=== PATIENT | female | born 1935 | race Caucasian/White ===

== ENCOUNTER 2018-07-18 00:57 | Inpatient (IN) | payer OTHER ==
[~2018-07-18] VITALS: Ht 165.1 cm; Wt 63.5 kg
[2018-07-18 01:02] VITALS: BP 152/81
[2018-07-18] MEDS ORDERED: SYNTHROID88 MCG PO (01:14)
[2018-07-18] MEDS ORDERED: BUTRANS1 EAC1 TRANSDERM (01:15)
[2018-07-18] MEDS ORDERED: FISH OIL 1,001000 M2 (01:16)
[2018-07-18] MEDS ORDERED: ECOTRIN325 MG PO (01:16)
[2018-07-18] MEDS ORDERED: PROTONIX 20 MG20 M1 PO (01:17)
[2018-07-18 05:45] LABS: URINE BILIRUBIN NEGATIVE (Negative); URINE BLOOD TRACE (Negative); URINE CLARITY CLEAR; URINE COLOR YELLOW; URINE GLUCOSE-RANDOM* NEGATIVE (Negative); URINE KETONES NEGATIVE (Negative); URINE LEUKOCYTES-REFLEX TRACE (Negative); URINE NITRITE-REFLEX NEGATIVE (Negative); URINE PROTEIN (DIPSTICK) NEGATIVE (Negative); URINE SPECIFIC GRAVITY <= 1.005 (1.005-1.035); URINE UROBILINOGEN 0.2 E.U./dl (0.2-1.0)
[2018-07-18 05:48] LABS: HEMATOCRIT 33.2 % (37.0-47.0); HEMOGLOBIN 11.1 gm/dL (12.0-15.0); MCH 27.3 pg (26.0-34.0); MCHC 33.3 g/dL (28.0-37.0); MCV 82.1 fL (80.0-100.0); PLATELET COUNT 225 thou/uL (150-400); RBC 4.04 mil/uL (4.20-5.00); RDW 16.9 % (10.5-14.5); WBC 6.7 thou/uL (4.0-11.0)
[2018-07-18 05:52] LABS: CALCIUM 9.2 mg/dL (8.5-10.1); CREATININE 0.7 mg/dL (0.6-1.0); POTASSIUM 4.1 mmol/L (3.5-5.1)
[2018-07-18 05:55] LABS: PROTIME 10.7 Seconds (9.3-11.4)
[2018-07-18 06:25] LABS: ABSOLUTE NEUTROPHILS 2.6 thou/uL (1.4-8.2)
[2018-07-18 06:26] LABS: ANISOCYTOSIS 1+; BURR CELLS 1+; PLATELET ESTIMATE NORMAL; SCHISTOCYTES 1+
[2018-07-18 07:01] VITALS: BP 144/69
[2018-07-18 08:30] VITALS: BP 133/54
[2018-07-18] MEDS ORDERED: VITAMIN D1000 UNI1 PO (11:10)
[2018-07-18] MEDS ORDERED: CLARITIN10 MG PO (11:10)
[2018-07-18] MEDS ORDERED: MOMETASONE FURO17 GM NASAL (11:23)
[2018-07-18 15:00] VITALS: BP 149/78
--- NOTE | 2018-07-18 15:17 | NUR ---
PT ADMITTED RELATED TO BACK PAIN. CM REVIEWED CHART AND SPOKE WITH CARE TEAM. CM MET WITH PT AT BEDSIDE THIS DAY. PT IS A&O X4. CM ROLE INTRODUCED. PT INDICATED SHE LIVES IN A 3RD FLOOR SENIOR APARTMENT AT [facility]. PT INDICATED SHE THERE IS ELEVATOR ACCESS. PT INDICATED SHE HAD USED A 4WW TO ASSIST WITH MOBILITY SYSTEM DEVELOPMENT MANAGER. PT INDICATED SHE WOULD BE RECEPTIVE TO HH SERVICES IF RECOMMENDED UPON DC. PT INDICATED SHE PLANS TO RETURN HOME ONCE MEDICALLY STABLE. CM TO FOLLOW INDICATED WITH DC PLANNING.
--- NOTE | 2018-07-18 17:21 | NUR ---
PT STABLE THROUGHOUT SHIFT. PT TRANSFERRED TO SR. [facility], REPORT CALLED. ROOM 225.
[2018-07-18 20:30] VITALS: BP 152/83
--- NOTE | 2018-07-19 04:53 | NUR ---
Assumed pt care at 1900.Pt is A/OX4 and hard of hearing.VSS.Up with A/1 with RW/GB. C/o pain to lower back especially with movement.medicated per EMAR with relief reported. Voiding without problems. Bed alarm on,call light/personal items within reach.Resting quietly eyes closed with no distress noted.Will continue to monitor pt.
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
[2018-07-19 08:07] VITALS: BP 143/86
--- NOTE | 2018-07-19 09:28 | NUR ---
PATIENT SEEN BY ELIJAH VIDES NP WITH DR. MELLO, ON 07/18/18. PATIENT IS A CONDIDATE FOR ACUTE REHAB. AUTHORIZATION PROCESS INITIATED THIS DATE (09). WILL AWAIT RESPONSE FROM [facility]. CROP OR LIVESTOCK TENANT FARMER INFORMED. THANK YOU FOR THIS REFERRAL.
--- NOTE | 2018-07-19 11:52 | NUR ---
SW reviewed chart. Spoke with nursing and attending physician. Pt was [facility] to [facility] and is progressing towards goals for discharge. [facility] is following it and has submitted for insurance authorization. Awaiting MRI results. SW is following to assist as needed with discharge planning.
--- NOTE | 2018-07-19 12:13 | NUR ---
PT STATES THE TYLENOL ISN'T TAKING CARE OF HER PAIN, ASKS FOR STRONGER MED. 'BRAIN' SHOWS HER LONG LIST OF ALLERGIES AND BELOW IN THE ADR LIST IT SHOWS SOME PAIN MEDICATIONS. WHEN SPECIFICALLY ASKED SHE'S UNSURE WHAT HER SYMPTOM WAS, SHE THOUGHT IT WAS MERELY ITCHING. SHE STATES SHE WILLING TO TAKE THE HYDROCODONE AND BENADRYL FOR PAIN RELIEF. WILL ADM AND MONITOR
--- NOTE | 2018-07-19 15:29 | NUR ---
PATIENT SEEN BY ELIJAH VIDES NP WITH DR. MELLO, ON 07/18/18. PATIENT IS APPROPRIATE FOR ACUTE REHAB ADMISSION. AUTHORIZATION REQUESTED AND INFORMATION FAXED TO [facility] THIS DATE. WILL AWAIT DECISION OF INSURANCE AND CONTINUE TO FOLLOW PATIENT.
[2018-07-19 19:52] VITALS: BP 110/60
--- NOTE | 2018-07-20 06:37 | NUR ---
Assumed pt care at 1900. Pt A/OX4,[place].Up with assist of 1 RW/GB. C/o pain lower back pain especially w/movement medicated per EMAR with relief reported. VSS. Voiding without any problems reported. Bed alarm on and pt calls appropriately for help.Call light/personal items within reach.Will continue to monitor pt.
[2018-07-20 08:00] VITALS: BP 116/67
--- NOTE | 2018-07-20 08:57 | NUR ---
REHAB ADMISSIONS LIAISON RECEIVED CALL FROM MICHAEL WITH [facility] REPORTING DENAIL FOR ACUTE REHAB STAY. IF PEER TO PEER IS DESIRE BY PHYSICIAN, CALL MICHAEL AT [phone] AND GIVE PHYSICAINS NAME AND CONTACT INFORMATION. REFERENCE NUMBER IS [id number]. IF NO PEER TO PEER, HAVE SKILLED FACILITY CALL [phone] AND TELL THEM THAT THEY WERE "REFERRED FOR [facility]PROVAL" AND AUTH WILL BE GIVEN SAME DAY.
--- NOTE | 2018-07-20 11:55 | NUR ---
PATIENT CARE IS ASSUMED AT 0715.PATIENT IS ALERT AND ORIENTED X4.IV IS INTACT, AND SALINE LOCKED.PAIN HAS SOME PAIN, WILL GIVE PAIN MEDS WITH MORNING MED PASS.FALL PRECAUTIONS ARE IN PLACE.PATIENT WAS PLACED IN CHAIR FOR MEALS.PATIENT IS X1 ASSIST WITH WALKER.CALL LIGHT,PHONE, AND PERSONAL BELONGINGS ARE WITHIN REACH.
--- NOTE | 2018-07-20 13:01 | NUR ---
KAROLINE reviewed chart and spoke with nursing and attending physician. KAROLINE notified by [facility] rehab therapy manager that insurance denied admission to inpt acute rehab. Option for peer to peer provided. This info sent to attending physician: if attending does not want to do the peer to peer, a SNF can call [phone] to auth. Reference # [id number]. Per attending, pt can d/c home with services. KAROLINE met with pt at bedside to discuss discharge plan. Pt states she was not aware of her discharge and [facility] consult. Pt states she does feel that she can benefit from a short term rehab stay. Options discussed with pt. Pt requests referral to be sent to Mary at [facility], as it is next door to her apt complex. production planner to fax referral. KAROLINE updated attending physician and Director of Case Mgmt. KAROLINE is following to assist as needed with discharge planning.
--- NOTE | 2018-07-20 13:18 | NUR ---
DISCHARGE PLANNING. POST ACUTE RECOMMENDED AT DISCHARGE FOR PATIENT. [facility] VERIFIED REFERRAL RECEIVED. CALL PLACED TO [facility] AND VOICE MAIL LEFT FOR [facility] REGARDING REFERRAL AND PATIENTS DISCHARGE NEEDS. UNIT CM/SW AWARE. FOLLOWING TO ASSIST WITH DISCHARGE NEEDS.
[2018-07-20 18:48] VITALS: BP 120/59
[2018-07-20 19:08] VITALS: BP 140/73
--- NOTE | 2018-07-21 04:39 | NUR ---
PATIENT ALERT AND ORIENTED X4 WITH PERIODS OF CONFUSION. PATIENT HAS PACEMAKER . [place]. UP TO BATHROOM WITH ASSIST OF 1. C/O PAIN, MED GIVEN PO. VERY ANXIOUS. SLEPT OFF AND ON DURING NIGHT.
[2018-07-21 08:00] VITALS: BP 136/81
[2018-07-21] MEDS ORDERED: HYDROCODONE-AP1 EAC6 PO (11:50)
[2018-07-21 12:03] VITALS: BP 136/81
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
--- NOTE | 2018-07-21 19:14 | NUR ---
PATIENT WAS DISCHARGED TO GO HOME WITH HOME HEALTH.TRANSPORTATION CAME TO TAKE PATIENT HOME.IV WA TAKEN OUT.PATIENT WAS GIVEN D/C PAPERS AND TAKEN OUT IN W/C/
== END 2018-07-21 19:17 | disposition home health service (06) | DRG 552 ==
LOC: ER 00:57 → 4W 06:02 → EROBS 06:02 → 4W 07:03 → SICU 17:52
PROVIDERS: Emergency Medicine; ADMIT Hospitalist
DX: M54.16 Radiculopathy, lumbar region (principal); G89.29 Other chronic pain; K21.9 Gastro-esophageal reflux disease without esophagitis; F32.9 Major depressive disorder, single episode, unspecified; F41.9 Anxiety disorder, unspecified; I48.2 Chronic atrial fibrillation; Z60.2 Problems related to living alone; M19.90 Unspecified osteoarthritis, unspecified site; F43.10 Post-traumatic stress disorder, unspecified; M48.02 Spinal stenosis, cervical region; E03.9 Hypothyroidism, unspecified; M62.84 Sarcopenia; Z95.0 Presence of cardiac pacemaker; Z90.710 Acquired absence of both cervix and uterus; Z88.0 Allergy status to penicillin; Z88.8 Allergy status to other drugs, medicaments and biological substances; Z88.6 Allergy status to analgesic agent; Z88.1 Allergy status to other antibiotic agents; Z91.041 Radiographic dye allergy status; Z91.040 Latex allergy status; Z91.010 Allergy to peanuts; Z86.73 Personal history of transient ischemic attack (TIA), and cerebral infarction without residual deficits; Z79.82 Long term (current) use of aspirin; Z79.899 Other long term (current) drug therapy; X58.XXXA Exposure to other specified factors, initial encounter; Y93.89 Activity, other specified; Y92.89 Other specified places as the place of occurrence of the external cause; Y99.8 Other external cause status; Z86.718 Personal history of other venous thrombosis and embolism
CPT/HCPCS: 15002